=== PATIENT | male | born 1955 | race Two or more races ===

== ENCOUNTER 2024-07-04 08:00 | Outpatient (CLI) | payer OTHER ==
[~2024-07-04] VITALS: Ht 182.9 cm; Wt 68.0 kg
[2024-07-04 15:30] VITALS: BP 192/96
== END 2024-07-04 08:01 | disposition home or self-care (01) ==
LOC: EKG 08:00 → ADM 12:30 → CIR.AMB 07-13 08:45 → EDSTATUS 07-13 12:30 → CIR.AMB 07-13 12:30
PROVIDERS: ATTEND Surgery
DX: I10 Essential (primary) hypertension (principal)